=== PATIENT | male | born 1975 | race Two or more races ===

== ENCOUNTER 2018-03-18 14:06 | Emergency (ER) | payer SELFPAY ==
[2018-03-18 14:14] VITALS: BP 135/91; PULSE 94; TEMP 98.2; BMI 36.2
--- NOTE | 2018-03-18 15:44 | PDOC ---
History of Present Illness - General History Source: Patient Exam Limitations: No Limitations <Kelly Arellano - Last Filed: 03/18/18 18:34> - General History Source: Patient Exam Limitations: No Limitations - History of Present Illness Initial Comments: 03/18/18 15:51 The patient is a 42 year old male, with a significant past medical history of anxiety, depression, and PVD, who presents to the emergency department with right leg swelling and pain for several days. The patient reports he first developed right leg swelling about 1 week ago. Yesterday, patient reports new onset of associated pain, worse with ambulation. He denies any chest pain, shortness of breath, diaphoresis, or palpitations. He denies any abdominal pain , nausea, or vomiting. He denies any fever, chills, cough, headache, or dizziness. He denies any dysuria, hematuria, frequency, or urgency. Patient reports he takes Aspirin daily s/p Fem-Pop bypass. He reports he recently returned from the [place] 3 weeks ago. Allergies: NKDA Past Surgical History: Femoral-Popliteal bypass Social History: Current everyday smoker. No ETOH or recreational drug use. <Verena Roland - Last Filed: 03/18/18 18:37> - General Chief Complaint: Pain Stated Complaint: LEG SWOLLEN/FEM-POP BYPASS Past History - Past Medical History COPD: No Psychiatric Problems: Yes (depression, anxeity) Other medical history: PVD - Surgical History Abdominal Surgery: Yes (FEM-POP BYPASS) - Suicide/Smoking/Psychosocial Hx Smoking History: Current every day smoker Have you smoked in the past 12 months: Yes Number of Cigarettes Smoked Daily: 20 Information on smoking cessation initiated: Yes 'Breaking Loose' booklet given: 03/18/18 Hx Alcohol Use: No Drug/Substance Use Hx: No Substance Use Type: None <Kelly Arellano - Last Filed: 03/18/18 18:34> <Verena Roland - Last Filed: 03/18/18 18:37> - Past Medical History Allergies/Adverse Reactions: Allergies Allergy/AdvReac Type Severity Reaction Status Date / Time No Known Allergies Allergy Verified 03/18/18 14:09 Review of Systems - Review of Systems Able to Perform ROS?: Yes Comments:: 03/18/18 15:51 GENERAL/CONSTITUTIONAL: No fever or chills. No weakness. HEAD, EYES, EARS, NOSE AND THROAT: No change in vision. No ear pain or discharge. No sore throat. CARDIOVASCULAR: No chest pain or shortness of breath. RESPIRATORY: No cough, wheezing, or hemoptysis. GASTROINTESTINAL: No nausea, vomiting, diarrhea or constipation. GENITOURINARY: No dysuria, frequency, or change in urination. MUSCULOSKELETAL: +Right leg swelling and pain. No neck or back pain. SKIN: No rash NEUROLOGIC: No headache, vertigo, loss of consciousness, or change in strength/ sensation. ENDOCRINE: No increased thirst. No abnormal weight change. HEMATOLOGIC/LYMPHATIC: No anemia, easy bleeding, or history of blood clots. ALLERGIC/IMMUNOLOGIC: No hives or skin allergy. <Verena Roland - Last Filed: 03/18/18 18:37> *Physical Exam - Vital Signs Last Vital Signs Temp Pulse Resp BP Pulse Ox 98.2 F 94 H 18 135/91 100 03/18/18 14:11 03/18/18 14:11 03/18/18 14:11 03/18/18 14:11 03/18/18 14:11 - Physical Exam General Appearance: Yes: Nourished HEENT: positive: Normal ENT Inspection Neck: positive: Trachea midline Respiratory/Chest: positive: Lungs Clear (anyway) Cardiovascular: positive: Regular Rhythm, Regular Rate, S1, S2 (right I think he ) Gastrointestinal/Abdominal: positive: Normal Bowel Sounds Musculoskeletal: positive: Normal Inspection Extremity: positive: Normal Capillary Refill, Normal Inspection, Swelling, Other (right leg with pitting edema. 2+dp/ pt pulses. ) Integumentary: positive: Normal Color, Dry, Warm <Kelly Arellano - Last Filed: 03/18/18 18:34> - Vital Signs Last Vital Signs Temp Pulse Resp BP Pulse Ox 98.2 F 94 H 18 135/91 100 03/18/18 14:11 03/18/18 14:11 03/18/18 14:11 03/18/18 14:11 03/18/18 14:11 <Verena Roland - Last Filed: 03/18/18 18:37> ED Treatment Course - RADIOLOGY Radiology Studies Ordered: Category Date Time Status DUPLEX VASCUL US-1 LEG [US] Stat Ultrasound 03/18/18 15:42 Ordered <Kelly Arellano - Last Filed: 03/18/18 18:34> - RADIOLOGY Radiograph Interpretation: 03/18/18 18:37 EXAM: Duplex US RLE INTERPRETED BY: Dr. Antoine REVIEWED BY: Dr. Arellano IMPRESSION: There is no sonographic evidence of deep vein thrombosis. No obvious superficial thrombophlebitis is noted. If there is clinical concern for possible isolated calf DVT or if there is a clinical diagnosis of uncomplicated superficial thrombophlebitis, then correlation with follow up sonography is suggested in approximately 3-7 days. There is no obvious popliteal cyst. SUMMARY: No DVT is identified involving the right leg. Please see above. <Verena Roland - Last Filed: 03/18/18 18:37> Medical Decision Making - Medical Decision Making 03/18/18 15:45 42-year-old male with a history of prior DVT in the right leg here today complaining of right leg swelling and pain. For 1 week. Patient did travel to [place] 3 weeks ago on exam has pitting edema to the right lower extremity only differential includes DVT versus phlebitis versus edema from old scarring. Plan Doppler of the right lower extremity <Kelly Arellano - Last Filed: 03/18/18 18:34> *DC/Admit/Observation/Transfer - Discharge Dispostion Decision to Admit order: No <Kelly Arellano - Last Filed: 03/18/18 18:34> - Attestations Scribe Attestion: 03/18/18 15:53 Documentation prepared by Verena Roland, acting as medical doctor md/medical director for Kelly Arellano MD. <Verena Roland - Last Filed: 03/18/18 18:37> Diagnosis at time of Disposition: Leg edema, right - Discharge Dispostion Disposition: HOME - Referrals Referrals: Rishi Wu MD [Non Staff, Medical] - - Patient Instructions Printed Discharge Instructions: Venous Insufficiency (Alternative Therapy) Additional Instructions: you should follow up with vascular surgeon dr. wu. wear supportive stockings. elevate legs when sitting. return for any worsening symptoms or concerns. you shouls also have a repeat ultrasound within one week if your symtpoms persist.
== END 2018-03-18 20:06 | disposition home or self-care (01) ==
LOC: JER 14:06
DX: M79.89 Other specified soft tissue disorders (principal); I82.409 Acute embolism and thrombosis of unspecified deep veins of unspecified lower extremity
CPT/HCPCS: 93971-TC; 99282-25